=== PATIENT | female | born 1975 | race Caucasian/White ===

== ENCOUNTER → 2016-08-08 | Outpatient (CLI) | payer BC, OTHER | LOC: MC.RAD 10:30 | DX: Z12.31 Encounter for screening mammogram for malignant neoplasm of breast (principal) ==

== ENCOUNTER → 2019-01-13 | Outpatient (CLI) | payer BC | LOC: MC.RAD 10:51 | DX: Z12.31 Encounter for screening mammogram for malignant neoplasm of breast (principal) ==

== ENCOUNTER 2019-09-16 21:47 | Inpatient (IN) | payer BC ==
[~2019-09-16] VITALS: Ht 162.6 cm; Wt 110.4 kg
[2019-09-16 22:41] LABS: COLLECTION METHOD CLEAN CATCH
[2019-09-16 22:44] LABS: BASO # 0.1 (0.0-0.2); BASO % 0.4 % (0.0-2.0); EOS # 0.1 (0.0-0.7); EOS % 0.6 % (0-4.0); GRAN % 83.6 % (42.2-75.2); HEMATOCRIT 41.5 % (37.0-47.0); HEMOGLOBIN 13.6 g/dl (12.5-16.0); LYMPH # 1.2 (1.2-3.4); LYMPH % 9.3 % (20.0-51.0); MEAN CELL VOLUME 82 fl (80.0-100.0); MEAN CORPUSCULAR HEMOGLOBIN 27 pg (27.0-31.0); MEAN CORPUSCULAR HGB CONC 33 g/dl (33.0-37.0); MEAN PLATELET VOLUME 10.8 fl (7.4-10.4); MONO # 0.7 (0.1-0.6); MONO % 5.6 % (1.7-9.3); PLATELET COUNT 285 K/mm3 (130-400); RED BLOOD COUNT 5.06 M/mm3 (4.10-5.30); REDCELL DISTRIBUTION WIDTH-CV 12.9 % (11.5-14.5)
[2019-09-16 22:47] LABS: MUCOUS Present /lpf; PH 6 (5-8); SQUAMOUS EPITHELIAL 0-2 /hpf; URINE APPEARANCE Clear; URINE BACTERIA Rare /hpf; URINE BILIRUBIN Negative (NEGATIVE); URINE BLOOD 3+ (NEGATIVE); URINE COLOR Yellow; URINE GLUCOSE Negative (NEGATIVE); URINE KETONE Negative (NEGATIVE); URINE LEUKOCYTE ESTERASE Negative (NEGATIVE); URINE NITRATE Negative (NEGATIVE); URINE PROTEIN(semi-quant) Negative (NEGATIVE); URINE RBC 20-50 /hpf
[2019-09-16 23:13] LABS: BILIRUBIN,TOTAL 0.7 mg/dL (0.0-1.0); C-REACTIVE PROTEIN 0.9 mg/dL (0.0-0.9); CALCIUM 8.4 mg/dL (8.4-10.2); CREATININE, serum 0.75 (0.52-1.25); POTASSIUM 3.4 mmol/L (3.4-5.0); TOTAL PROTEIN 7.4 gm/dL (6.4-8.2)
--- NOTE | 2019-09-17 00:30 | NUR ---
Received report from ERIS Carson from ED.
--- NOTE | 2019-09-17 01:00 | NUR ---
Pt arrived to surgical unit room 348 via wc. Upon arrival pt had emesis episode, yellow liquid. Pt states feeling lightheaded and felt movement caused her to vomit. Pt refused prn zofran at this time. Assessment complete. Med rec completed. INT to RFA intact, flushed, dressing CDI. c/o lower abdomen pain, rate 3-4/10, refused any pain meds at this time but pt is aware pain meds are available upon request. Fluids and antibiotic started as ordered. Pt NPO, pt understands. Needs met. call light within reach.
[2019-09-17 01:20] VITALS: BP 133/66; PULSE 61; TEMP 97.4
--- NOTE | 2019-09-17 01:30 | NUR ---
Upon returning to pt room with fluids and antibiotic, pt was vomiting yellow liquid into trash can. PRN zofran administered. Made pt comfortable. Needs attended too at this time. call light within reach.
[2019-09-17] MEDS ORDERED: PRINZIDE 12.5 M1 TAB PO (02:09)
[2019-09-17] MEDS ORDERED: CELEXA 20MG20 MG/TAB PO (02:09)
[2019-09-17] MEDS ORDERED: ZIAC 10/6.25M1 UDTAB PO (02:10)
[2019-09-17] MEDS ORDERED: CLARITIN 1010 MG/TAB PO (02:10)
[2019-09-17 04:08] VITALS: BP 146/80; PULSE 84; TEMP 97.4
--- NOTE | 2019-09-17 05:34 | NUR ---
PRN PAIN MEDS AND ZOFRAN ADMINISTERED REQUESTED PER PT. HAD MULTIPLE EPISODES OF VOMITING SMALL-MED AMOUNT OF YELLOW LIQUID. MADE PT COMFORTABLE. CALL LIGHT WITHIN REACH.
--- NOTE | 2019-09-17 06:57 | NUR ---
REPORT GIVEN TO DENIA
[2019-09-17 08:42] VITALS: BP 124/78; PULSE 86; TEMP 97.5
--- NOTE | 2019-09-17 09:00 | NUR ---
Patient resting in bed. feeling miserable. nausea still present after zofran. Pain rating 5/10, so improving. rounded. Dilaudid increased per orders. IVf continue to RFA. Ice chips & water provided, encouraged her to take it slow with liquids. Will closely monitor, she understands plan of care.
[2019-09-17 11:11] VITALS: BP 127/74; PULSE 80; TEMP 97.6
--- NOTE | 2019-09-17 11:18 | NUR ---
Patient reports pain creeping back up. Pain medication per orders. Patient up to the bathroom & voided. Will monitor.
--- NOTE | 2019-09-17 11:25 | NUR ---
First visit from the shop foreman. No needs right now.
--- NOTE | 2019-09-17 14:05 | NUR ---
Wildlife Technician met with patient to discuss discharge planning. Patient lives in [place] with her two sons, Brian (age 19) and Richard (age 13). Patient listed her mother, Tootie (ph#[phone]) as her emergency contact. Patient sees Dr. Sabiha Isabel for primary care and obtains medications from [facility] with no difficulties. Patient has a CPAP from [facility] and no other DME. Patient reports independence with ADLS. Patient does not have Advance Directives and was not interested in setting them up at this time. Patient plans to return home upon discharge. No additional needs at this time.
[2019-09-17 15:46] VITALS: BP 113/68; PULSE 86; TEMP 98
--- NOTE | 2019-09-17 19:07 | NUR ---
Patient sleeping soundly now. Patient had vomited after zofran was given this afternoon. notifed & updated on patient status. Pheneragan ordered. Also Clarified patient did not need to be on antibioitcs. Patient vitals have been stable. Pain does elevated as soon as pain medication wears off. IVf per orders. Patient has voided today. Accuarate I&O kept. Reported off to night nurse.
[2019-09-17 19:41] VITALS: BP 163/90; PULSE 86; TEMP 98.2
--- NOTE | 2019-09-17 20:00 | NUR ---
Received report form AKILAH Chandra.Pt currently sleeping in bed. Pt has her call light and her bed is in lowest position.
[2019-09-18] VITALS (7 sets, daily range): BP systolic 138–171; BP diastolic 66–94; PULSE 80–108; TEMP 97.8–99
--- NOTE | 2019-09-18 03:00 | NUR ---
Pt has asked for pain medication about every 2 hours. Pt has had some nausea and was given nausea medication once during the shift. Pt is currently lying in bed sleeping at this time.
--- NOTE | 2019-09-18 04:08 | NUR ---
Pt is currently sleeping in bed. Pt has her call light within reach.
--- NOTE | 2019-09-18 04:29 | NUR ---
Pt requested something for pain at this time. Pt was given pain medication at this time. Pt has her call light within reach.
[2019-09-18 07:07] LABS: BASO % 0.2 % (0.0-2.0); EOS # 0.2 (0.0-0.7); EOS % 0.8 % (0-4.0); GRAN # 18.9 (1.4-6.5); GRAN % 88.8 % (42.2-75.2); HEMATOCRIT 39.9 % (37.0-47.0); HEMOGLOBIN 13.1 g/dl (12.5-16.0); LYMPH # 0.6 (1.2-3.4); LYMPH % 2.8 % (20.0-51.0); MEAN CELL VOLUME 82 fl (80.0-100.0); MEAN CORPUSCULAR HEMOGLOBIN 27 pg (27.0-31.0); MEAN CORPUSCULAR HGB CONC 33 g/dl (33.0-37.0); MEAN PLATELET VOLUME 10.8 fl (7.4-10.4); MONO # 1.4 (0.1-0.6); MONO % 6.4 % (1.7-9.3); PLATELET COUNT 234 K/mm3 (130-400); RED BLOOD COUNT 4.85 M/mm3 (4.10-5.30); REDCELL DISTRIBUTION WIDTH-CV 13.3 % (11.5-14.5)
[2019-09-18 07:28] LABS: ALBUMIN 3.5 gm/dL (3.5-5.0); BILIRUBIN,TOTAL 0.9 mg/dL (0.0-1.0); CALCIUM 7.4 mg/dL (8.4-10.2); CREATININE, serum 0.58 (0.52-1.25); TOTAL PROTEIN 6.6 gm/dL (6.4-8.2)
[2019-09-18 07:29] LABS: POTASSIUM 2.8 mmol/L (3.4-5.0)
--- NOTE | 2019-09-18 07:30 | NUR ---
Reported off to AKILAH Arellano. Pt currrently lying in bed sleeping.
--- NOTE | 2019-09-18 08:38 | NUR ---
Dr Gardner here to see patient.
--- NOTE | 2019-09-18 11:01 | NUR ---
Patient alert and oriented, answers questions appropriately. See assessment. Abdomen soft, non distended, tender to LUQ/LLQ. No jaundice noted, sclera white. Plan of care reviewed with patient. No other c/o at this time.
--- NOTE | 2019-09-18 11:37 | NUR ---
First visit from the burlap worker. No needs right now.
--- NOTE | 2019-09-18 16:28 | NUR ---
Dr Gardner here to see patient.
--- NOTE | 2019-09-18 19:40 | NUR ---
Received report from AKILAH Arellano. Pt has her call light within reach and her bed is in lowest position.
--- NOTE | 2019-09-18 21:32 | NUR ---
Contacted Dr. Velazquez at [phone] about pts elevated blood pressure. Pt blood pressure reading has been increasing. He was ok with the pt started her blood pressure and heart medications as she does at home. Pt was given her medications. She did have some nausea and she was given Zofran at that time. After her nausea was better pt took her PO blood pressure at this time. Pt is currently lying in bed and has her call light within reach
--- NOTE | 2019-09-19 00:20 | NUR ---
Pt has had both of her scheduled Antibiotics. Between the IV antibiotics she was still getting her scheduled potassium. She still had one bag remaining and it was after midnight. Pt has her call light within reach and her bed is in lowest position.
[2019-09-19 04:00] VITALS: BP 151/97; PULSE 80; TEMP 99.1
[2019-09-19 06:58] LABS: BASO % 0.2 % (0.0-2.0); EOS # 0.1 (0.0-0.7); EOS % 0.7 % (0-4.0); GRAN # 15.6 (1.4-6.5); GRAN % 84.9 % (42.2-75.2); HEMOGLOBIN 12.2 g/dl (12.5-16.0); LYMPH % 5.3 % (20.0-51.0); MEAN CELL VOLUME 82 fl (80.0-100.0); MEAN CORPUSCULAR HEMOGLOBIN 27 pg (27.0-31.0); MEAN CORPUSCULAR HGB CONC 33 g/dl (33.0-37.0); MEAN PLATELET VOLUME 10.5 fl (7.4-10.4); MONO # 1.4 (0.1-0.6); MONO % 7.4 % (1.7-9.3); PLATELET COUNT 243 K/mm3 (130-400); RED BLOOD COUNT 4.49 M/mm3 (4.10-5.30); REDCELL DISTRIBUTION WIDTH-CV 13.4 % (11.5-14.5)
--- NOTE | 2019-09-19 07:01 | NUR ---
Reported off to AKILAH Guerrero. Pt is currently lying in bed and has her call light within reach. Pt has been NPO after midnight.
[2019-09-19 07:11] LABS: ALBUMIN 3.2 gm/dL (3.5-5.0); CALCIUM 7.7 mg/dL (8.4-10.2); CREATININE, serum 0.64 (0.52-1.25); TOTAL PROTEIN 6.3 gm/dL (6.4-8.2)
[2019-09-19 07:16] LABS: POTASSIUM 2.8 mmol/L (3.4-5.0)
--- NOTE | 2019-09-19 08:06 | NUR ---
Notified Dr. Gardner of KCL- potassium protocol entered.
[2019-09-19 08:13] VITALS: BP 154/91; PULSE 80; TEMP 98.2
--- NOTE | 2019-09-19 08:30 | NUR ---
Patient sitting up in bed. Alert and oriented x 3. INT to left forarm without complications, fluids infusing per orders to right forarm IV. Denies pain/Nausea at this time. Denies further needs at this time.
--- NOTE | 2019-09-19 09:59 | NUR ---
Patient able to finish 1 dose of efferK, then states unable to do more because its causing nausea. Potassium changed to IV per protocol.
--- NOTE | 2019-09-19 11:27 | NUR ---
SW met with patient to complete intake and discuss discharge plan. Patient states that he lives at home with his Loren [phone] and son. Patient also states that he does not utiliz any DME and is independent with ADL's. Patient provides that his new PCP will be Loco Malhotra. Patient provides that he obtains his medications from [employer] [facility], and that he is able to afford his medications. Patient does not have a DPOA-HC listed and stated that he would like to complete documentation and appoint his Loren to be his DPOA-HC. Documentation reviewed and signed by patient with ABDI Green as second witness. Documenation placed in chart and copies provided to patient. Patient plans to go home upon discharge and states that he has no questions or concerns in regards to discharge at this time. ABDI will continue to follow.
[2019-09-19 12:19] VITALS: BP 159/94; PULSE 76; TEMP 98.9
[2019-09-19 17:10] VITALS: BP 143/83; PULSE 71; TEMP 98
--- NOTE | 2019-09-19 18:49 | NUR ---
Patient has done well throughout the day. Complains of nausea throughout the day, zofran given per orders. Denies pain. Independent in room, steady gait. Denies further needs at this time. Will report off to overnight houseperson.
--- NOTE | 2019-09-19 19:00 | NUR ---
Called with C/O nausea. New order for phenergan initiated. Will monitor.
[2019-09-19 19:27] VITALS: BP 158/86; PULSE 76; TEMP 98.9
--- NOTE | 2019-09-19 20:45 | NUR ---
Report recevied, asssumed care for security shift supervisor. Assessment complete. A&Ox3-drowsy. VS stable. Nausea is better since phenergan at 1930. C/O pain to right side-dull ache-rating 2/10 on scale-denies need for medication. Voiding without difficulty. IV to right forearm flushes without difficulty. INT to left forearm noted to be swollen/red and warm to touch. C/O pain to that site. DCd at this time-cath intact. Warm compress applied. Plan of care discussed for lab draw to recheck potassium level. Verbalizes understanding. Denies needs. Call light in reach. Will monitor.
--- NOTE | 2019-09-19 21:37 | NUR ---
Dr Gardner notified of critical potassium of 2.9. Orders received to continue with protocol.
--- NOTE | 2019-09-19 22:15 | NUR ---
bookkeepers supervisor notified of need for IV placement. 20 guage placed in right forearm x1 attempt. Discussed with patient need for K admin x8 bags-1qh. Verbalizes understanding/denies questions/concerns. K protocol initiated at this time. Call light in reach. Will monitor.
[2019-09-19 22:56] VITALS: BP 165/77; PULSE 70; TEMP 98
[2019-09-20] VITALS (13 sets, daily range): BP systolic 125–163; BP diastolic 68–115; PULSE 78–94; TEMP 97.6–99
--- NOTE | 2019-09-20 06:06 | NUR ---
Potassium 10meq IV x8 bags complete at this time. Order placed for potassium draw at 0900 per protocol. Has remained NPO since midnight. Denies needs. Call light in reach. Will monitor.
--- NOTE | 2019-09-20 06:15 | NUR ---
Spoke with Dr. Gardner about K protocol-last bag finished at 0600-lab draw will be due at 0900. States to keep lab draw for 0900 and notify [facility] that surgery will be postponed until labs are resulted. House notified.
--- NOTE | 2019-09-20 08:30 | NUR ---
Patient resting in bed. Denies the need for pain medication this am. Awaiting labs results for Or clerence. She refused her am medications, reports Anesthesia told her not to take them this am. She remains NPO. nausea atbay at this time.
[2019-09-20 09:25] LABS: MAGNESIUM 2.2 mg/dL (1.6-2.3); POTASSIUM 3.2 mmol/L (3.4-5.0)
--- NOTE | 2019-09-20 09:30 | NUR ---
notifed of K+ lab results of 3.2. Cleared for the OR. Leonor here to take patietn to the Or. Ivf to gravity drip. Patient to the bathroom & voided. Dressed in clear gown. Will await her return.
--- NOTE | 2019-09-20 11:57 | NUR ---
Patient has returned from surgery. Report from Leonor. Vss on O2. Patient denies pain & nausea. She has a very dry persistant cough. denies SOB. Hot tea with honey provided. Abdomen soft with lap sites x3, bandaids intact. Scds ble. Ivf to Rfa, K+ per protocol resumed.
--- NOTE | 2019-09-20 13:27 | NUR ---
Persistant cough continues, productive at times. Dr. Gardner made aware. Cough drops orders. Pharmacy notified. Patient up to the bathroom & voided. Ate a small amount of lunch without nausea. Denies the need for pain medication.
--- NOTE | 2019-09-20 15:33 | NUR ---
Patient called out nauseated. Zofran given. Brushing her teeth now.
--- NOTE | 2019-09-20 17:00 | NUR ---
Patient had emesis, reports reflex/buring. notifed. Protinix ordered & given. Patient up to the bathroom & voided. bland dinner ordered. She denies pain. K+ continues to infuse per protocol.
--- NOTE | 2019-09-20 18:46 | NUR ---
Patient in better spirits. tolerated soup for dinner. dawn pain or nausea at this time. K+ finished infusing. Bedside report to AKILAH chirinos
[2019-09-20] MEDS ORDERED: NORCO 325 MG-51 TAB PO (19:05)
--- NOTE | 2019-09-20 20:00 | NUR ---
Report received. Assumed care for shift supervisor. Assessment complete. A&Ox3. VS stable. Denies pain/shortnessof breath. Slight nausea that was medicated for already. Voiding without difficulty. Tolerated some soup for dinner. Having some belching/denies flatus. Abd lap sites [id number]. Denies questions/concerns. Call light in reach. Will monitor.
--- NOTE | 2019-09-21 | NUR ---
Resting in bed eyes closed-audible snoring. NO s/s of pain or discomfort noted. Call light in reach. Will monitor.
[2019-09-21 03:36] VITALS: BP 103/63; PULSE 80; TEMP 98.3
--- NOTE | 2019-09-21 05:35 | NUR ---
Has rested well this shift. Denies pain/nausea/shortness of breath. VS remained stable. Tolerating PO-INTd at this time. Voiding without difficulty. Denies flatus. Bandaids to 3 lap sites remained CDI. Has been out of bed up in room. SCDs bilat. Call light in reach. Will monitor.
--- NOTE | 2019-09-21 06:40 | NUR ---
awake resting in bed, bedside shift report received from AKILAH Underwood
[2019-09-21 06:59] LABS: HEMOGLOBIN 11.3 g/dl (12.5-16.0); MEAN CELL VOLUME 83 fl (80.0-100.0); MEAN CORPUSCULAR HEMOGLOBIN 26 pg (27.0-31.0); MEAN CORPUSCULAR HGB CONC 32 g/dl (33.0-37.0); MEAN PLATELET VOLUME 10.6 fl (7.4-10.4); PLATELET COUNT 292 K/mm3 (130-400); RED BLOOD COUNT 4.29 M/mm3 (4.10-5.30); REDCELL DISTRIBUTION WIDTH-CV 13.3 % (11.5-14.5)
[2019-09-21 07:06] LABS: HEMATOCRIT 35.8 % (37.0-47.0)
[2019-09-21 07:07] LABS: BILIRUBIN,TOTAL 0.7 mg/dL (0.0-1.0); CALCIUM 7.5 mg/dL (8.4-10.2); CREATININE, serum 0.69 (0.52-1.25); POTASSIUM 3.5 mmol/L (3.4-5.0); TOTAL PROTEIN 6.1 gm/dL (6.4-8.2)
[2019-09-21 07:35] VITALS: BP 134/79; PULSE 88; TEMP 98.8
--- NOTE | 2019-09-21 09:30 | NUR ---
awake and moving about in bed independently, states was up and had a bowel movement earlier, full assessment completed, see interventions for further info
[2019-09-21 09:47] LABS: BAND 1 % (0-10); LYMPHOCYTE 12 % (20.0-51.0); NEUTROPHILS 80 % (42.0-75.2); PLATELET ESTIMATE NORMAL (NORMAL)
[2019-09-21 09:48] LABS: HYPOCHROMIA 1+
--- NOTE | 2019-09-21 11:25 | NUR ---
INT discontinued, discharge instructions given and verbalizes understanding
== END 2019-09-21 11:38 | disposition home or self-care (01) | DRG 418 ==
LOC: COL.ER 21:47 → SURG 09-17 00:19
PROVIDERS: Nurse Practitioner; ADMIT Surgery
PROC: BF121ZZ Fluoroscopy of Gallbladder using Low Osmolar Contrast (ICD-10-PCS; 2019-09-20)
PROC: 0FT44ZZ Resection of Gallbladder, Percutaneous Endoscopic Approach (ICD-10-PCS; principal; 2019-09-20 08:00)
DX: K85.11 Biliary acute pancreatitis with uninfected necrosis (principal); K80.00 Calculus of gallbladder with acute cholecystitis without obstruction; I10 Essential (primary) hypertension; E87.6 Hypokalemia; Z87.891 Personal history of nicotine dependence
CPT/HCPCS: C9113; J0690; J0744; J1100; J1170; J1885; J2405; J2543; J2550; J2704; J3010; J3480; J7030; Q9967

== ENCOUNTER → 2020-11-22 | Outpatient (CLI) | payer BC ==
[~2020-11-22] MED LIST: CELEXA 20MG20 MG/TAB PO; CLARITIN 1010 MG/TAB PO; NORCO 325 MG-51 TAB PO; PRINZIDE 12.5 M1 TAB PO; ZIAC 10/6.25M1 UDTAB PO
== END ==
LOC: MC.RAD 06:58
DX: N60.02 Solitary cyst of left breast (principal)